=== PATIENT | male | born 1950 | race Caucasian/White ===

== ENCOUNTER → 2018-08-25 18:55 | Outpatient (REF) | payer MEDICARE, SELFPAY ==
[2018-08-25 19:28] LABS: Alanine Aminotransferase 50 IU/L (21-72); Albumin 4.7 g/dL (3.5-5.0); Albumin Globulin Ratio 1.7 (1.0-2.8); Alkaline Phosphatase 43 U/L (38-126); Aspartate Aminotransferase 29 IU/L (17-59); BUN Creatinine Ratio 21.1 (6-22); Bilirubin Total 0.7 mg/dL (0.2-1.3); Blood Urea Nitrogen 19 mg/dL (9-20); Calcium 9.9 mg/dL (8.4-10.2); Carbon Dioxide 27 mmol/L (22-32); Chloride 102 mmol/L (98-107); Estimated Glomerular Filt Rate > 60.0 mL/min (>60); Globulin 2.8 g/dL (1.7-4.1); Glucose 102 mg/dL (80-110); HDL Cholesterol 60 mg/dL (40-60); HEMOLYSIS < 15 (0-50); Potassium 5.2 mmol/L (3.4-5.1); Sodium 138 mmol/L (137-145); Total Protein 7.5 g/dL (6.3-8.2); Triglycerides 139 mg/dL (35-150)
[2018-08-25 19:31] LABS: Add Manual Diff / Slide Review NO; Basophils Absolute Auto 0 /uL (0-100); Basophils Percent Auto 0.8 % (0-2); Eosinophils Absolute Auto 100 /uL (0-450); Eosinophils Percent Auto 2.2 % (2-4); Hemoglobin 15.5 g/dL (13.5-17.5); Lymphocytes Absolute Auto 2300 /uL (1100-4500); Lymphocytes Percent Auto 41.3 % (25-40); Mean Corpuscular HGB Conc 33.6 % (30-36); Mean Corpuscular Hemoglobin 31.6 PG (26-34); Mean Corpuscular Volume 93.9 fL (80-100); Monocytes Absolute Auto 500 /uL (0-900); Monocytes Percent Auto 8.9 % (3-14); Neutrophils Absolute Auto 2700 /uL (1500-7000); Neutrophils Percent Auto 46.8 % (50-75); Platelet Count 329 X10^3/uL (150-400); Red Cell Distribution Width 12.7 % (11.6-14.8); White Blood Cell Count 5.7 X10^3/uL (4.5-11.0)
[2018-08-25 19:43] LABS: Cholesterol 345 mg/dL (140-199); LDL Cholesterol Calculated 257 mg/dL (<100)
[2018-08-25 19:57] LABS: Prostate Specific Antigen 2.82 ng/mL (0.10-4.00)
== END ==
LOC: LAB 18:55
PROVIDERS: Visit Provider Physician Assistant
DX: Z00.00 Encounter for general adult medical examination without abnormal findings (principal); Z13.220 Encounter for screening for lipoid disorders; Z12.5 Encounter for screening for malignant neoplasm of prostate; I10 Essential (primary) hypertension
CPT/HCPCS: 36415; 80053; 80061; 84153; 85025

== ENCOUNTER 2019-08-24 07:46 | Day surgery (SDC) | payer MEDICARE, SELFPAY ==
[2019-08-24] VITALS (7 sets, daily range): BP systolic 107–130; BP diastolic 72–85; PULSE 52–72; RESP 10–18; TEMP 36.4–36.7; O2SAT 95–100; BMI 25.6
[2019-08-24] MEDS: SODIUM CHLORIDE 0.9% 1,000 ML 200 ML IV (08:13)
--- NOTE | 2019-08-24 08:27 | PM.HP.1 ---
History of Present Illness History of Present Illness Date Patient Seen: 08/24/19 Time Patient Seen: 08:27 Chief complaint: [id number] SCREENING COLONOSCOPY Narrative: Patient presents for colorectal screening. They had a previous colonoscopy normal 10 years ago. No personal or family history of colon cancer. On further history denies any recent gastrointestinal symptoms. No nausea, vomiting, abdominal pain, loss of appetite, unexplained weight loss, change in bowel habits, diarrhea, constipation, melena, hematochezia, or bright red blood per rectum. Patient History Medical History (Updated 08/24/19 @ 08:28 by Sarmad Boles MD) HTN (hypertension) (Acute) Hypercholesterolemia (Acute) Family & Social History Social History: household members spouse Tobacco & Substance use: Smoking Status Never smoker alcohol intake never Substance Use Type does not use Meds Home Medications and Allergies Home Medications Medication Instructions Recorded Confirmed Type atorvastatin 10 mg PO DAILY 08/24/19 08/24/19 History lisinopril 5 mg PO DAILY 08/24/19 08/24/19 History Allergies Allergy/AdvReac Type Severity Reaction Status Date / Time No Known Drug Allergies Allergy Unverified 03/12/18 15:20 Review of Systems Review of Systems Narrative: A 10 point review of systems is negative except as noted in the HPI Exam Vital Signs (past 8 hours): - 08/24/19 08:11 Temperature 97.6 F Pulse Rate 52 L Respiratory Rate 18 Blood Pressure 130/85 Pulse Oximetry 100 Oxygen Delivery Method Room Air Narrative Exam Narrative: General-no acute distress, well nourished HEENT-moist mucous membranes, no scleral icterus Neck-supple, no lymphadenopathy Chest- non labored respirations, clear to auscultation bilaterally Cardiac-regular rate no peripheral edema Abdomen-soft, nontender, non distended Extremities-warm, well perfused Neurological-alert and oriented, no focal deficits Assessment & Plan Assessment and plan (1) Screening for colon cancer: Current visit: Yes Status: Acute Assessment & Plan narrative: The patient requires colorectal screening and colonoscopy is recommended. Technical details were discussed. Risks, benefits, alternatives explained. Risks including but not limited to myocardial infarction, aspiration, bleeding, pain, missed lesion, incomplete examination, need for further radiographic studies, colonic perforation, and need for major abdominal surgery were discussed. All questions were answered to their satisfaction, and they are in agreement with this plan.
--- NOTE | 2019-08-24 08:47 | PM.OP.ENDO ---
Operative Date/Time/Diagnoses Date of procedure: 08/24/19 Time of procedure: 08:47 Pre-op diagnosis: Screening Post-op diagnosis: same Procedure & Clinicians Study performed: Colonoscopy Same procedure as scheduled: Yes Indications: Screening, last colonoscopy 10 years ago Surgeon: Sarmad Boles Procedure Notes SCOAP/Timeout: Performed Procedure in detail: Patient placed in left lateral decubitus position. Time out was performed. Procedural sedation was administered with Versed and Fentanyl. A rectal exam demonstrated no external hemorrhoids no internal masses. Colonoscopy scope was placed into the rectum and advanced through the colon to the cecum. The ileocecal valve was identified. The scope was then slowly withdrawn examining colon thoroughly in all directions. The colonoscopy was notable for the following 1. Sigmoid diverticulosis 2. No masses or polyps 3. Grade 1 internal hemorrhoids Scope withdrawal time: 6 Sedation minutes: 15 Findings: diverticulosis and internal hemorrhoids Specimen(s): none sent Complications: none Impression: Diverticulosis Post-procedure Recommendations: Colonscopy in 10 years Disposition: same day surgery
[2019-08-24] MEDS: MIDAZOLAM 5 MG/5 ML VIAL IV (08:49)
[2019-08-24] MEDS: fentaNYL 250 MCG/5 ML INJ IV (08:50)
== END 2019-08-24 09:30 | disposition home or self-care (01) ==
PROVIDERS: PCP Physician Assistant; Referring Provider Surgery; Visit Provider Surgery
PROC: 0DJD8ZZ Inspection of Lower Intestinal Tract, Via Natural or Artificial Opening Endoscopic (ICD-10-PCS; CPT 45378; principal; 2019-08-24 08:30)
DX: Z12.11 Encounter for screening for malignant neoplasm of colon (principal); I10 Essential (primary) hypertension; E78.00 Pure hypercholesterolemia, unspecified; K64.0 First degree hemorrhoids; K57.30 Diverticulosis of large intestine without perforation or abscess without bleeding
CPT/HCPCS: G0121; 99152; G0105; J2250; J3010